=== PATIENT | female | born 1975 | race Two or more races ===

== ENCOUNTER 2023-11-01 11:18 | Emergency (ER) | payer MEDICAID ==
[~2023-11-01] VITALS: Ht 162.6 cm; Wt 130.7 kg
[2023-11-01] MEDS ORDERED: BACDST PO (14:33)
[2023-11-01 14:45] VITALS: BP 160/98; PULSE 75; RESP 18; O2SAT 98
== END 2023-11-01 14:46 | disposition home or self-care (01) ==
LOC: ER 11:18
DX: L03.116 Cellulitis of left lower limb (principal); R10.2 Pelvic and perineal pain; L03.115 Cellulitis of right lower limb; L97.821 Non-pressure chronic ulcer of other part of left lower leg limited to breakdown of skin
CPT/HCPCS: 36415; 73590; 84702; 93970

== ENCOUNTER 2023-11-29 19:09 | Emergency (ER) | payer MEDICAID ==
[~2023-11-29] VITALS: Ht 162.6 cm; Wt 130.2 kg
[~2023-11-29 19:09] MED LIST: BACDST PO
[2023-11-29 19:19] VITALS: BP 162/105; PULSE 109; RESP 20; O2SAT 97
[2023-11-29 20:42] LABS: Basophils # (auto) 0.1 10 ^3/uL (0-0.2); Basophils % (auto) 0.8 % (0.0-2.0); Eosinophils # (auto) 0.1 10 ^3/uL (0-0.8); Eosinophils % (auto) 1.6 % (0.0-7.0); Hemoglobin 15.8 g/dL (12.2-16.2); Lymphocytes # (auto) 1.9 10 ^3/uL (0.4-5.4); Lymphocytes % (auto) 25.7 % (10.0-50.0); Mean Corpuscular Hemoglobin 30.5 pg (28.0-32.0); Mean Corpuscular Hgb Conc. 32.9 g/dL (32.0-36.0); Mean Corpuscular Volume 92.7 fL (80.0-100.0); Monocytes # (auto) 0.5 10 ^3/uL (0-1.3); Monocytes % (auto) 6.6 % (0.0-12.0); Neutrophils # (auto) 4.8 10 ^3/uL (1.6-8.6); Neutrophils % (auto) 65.3 % (37.0-80.0); Nucleated Red Blood Cells % 0.1 %; Red Blood Cells 5.18 10^6/uL (4.0-5.20); Red Cell Distribution Width 13.6 % (11.8-14.3); White Blood Cell 7.3 10^3/uL (4.4-10.8)
[2023-11-29 21:04] LABS: Alanine Aminotransferase 46 U/L (7-40); Alkaline Phosphatase 162 U/L (46-116); Anion Gap 4 (5-15); Aspartate Aminotransferase 42 U/L (13-40); BUN/Creatinine Ratio 12.8 (10.0-20.0); Bilirubin, Total 0.4 mg/dL (0.2-1.0); Blood Urea Nitrogen 11 mg/dL (9-23); Calcium 9.5 mg/dL (8.7-10.4); Carbon Dioxide 27 mmol/L (20-30); Chloride 109 mmol/L (98-107); Glucose 133 mg/dL (74-106); Lipase 33 U/L (12-53); Potassium 4.1 mmol/L (3.5-5.1); Sodium 140 mmol/L (136-145)
[2023-11-29 21:05] LABS: Total Protein 7.4 g/dL (5.7-8.2)
== END 2023-11-30 04:37 | disposition left against medical advice (07) ==
LOC: ER 19:09
DX: I83.009 Varicose veins of unspecified lower extremity with ulcer of unspecified site (principal); L97.919 Non-pressure chronic ulcer of unspecified part of right lower leg with unspecified severity; E11.9 Type 2 diabetes mellitus without complications; Z48.00 Encounter for change or removal of nonsurgical wound dressing
CPT/HCPCS: 36415; 80053; 83605; 83690; 83880; 84484; 85025; 87040

== ENCOUNTER 2024-05-07 22:46 | Emergency (ER) | payer MEDICAID ==
[~2024-05-07] VITALS: Ht 162.6 cm; Wt 129.0 kg
[2024-05-08 01:07] LABS: Alanine Aminotransferase 28 U/L (7-40); Albumin 4.1 g/dL (3.2-4.8); Alkaline Phosphatase 179 U/L (46-116); Anion Gap 6 (5-15); Aspartate Aminotransferase 34 U/L (13-40); BUN/Creatinine Ratio 17.5 (10.0-20.0); Bilirubin, Total 0.3 mg/dL (0.2-1.0); Blood Urea Nitrogen 11 mg/dL (9-23); Calcium 9.5 mg/dL (8.7-10.4); Carbon Dioxide 26 mmol/L (20-30); Chloride 109 mmol/L (98-107); Glucose 115 mg/dL (74-106); Potassium 3.5 mmol/L (3.5-5.1); Sodium 141 mmol/L (136-145); Total Protein 7.5 g/dL (5.7-8.2)
[2024-05-08 02:00] VITALS: BP 155/91; PULSE 74; RESP 14; TEMP 98.1; O2SAT 97
[2024-05-08] MEDS: HYDROcodone-ACET 5/325MG TAB PO ONE (02:20)
== END 2024-05-08 02:10 | disposition home or self-care (01) ==
LOC: ER 22:46
DX: I87.2 Venous insufficiency (chronic) (peripheral) (principal); I83.018 Varicose veins of right lower extremity with ulcer other part of lower leg; I83.028 Varicose veins of left lower extremity with ulcer other part of lower leg; L97.818 Non-pressure chronic ulcer of other part of right lower leg with other specified severity; L97.829 Non-pressure chronic ulcer of other part of left lower leg with unspecified severity; F15.10 Other stimulant abuse, uncomplicated; E66.01 Morbid (severe) obesity due to excess calories; Z68.42 Body mass index [BMI] 45.0-49.9, adult
CPT/HCPCS: 36415; 71045; 80053

== ENCOUNTER 2024-11-05 20:49 | Emergency (ER) | payer MEDICAID ==
[~2024-11-05] VITALS: Ht 162.6 cm; Wt 118.7 kg
--- NOTE | 2024-11-05 21:11 | ED.PDOC ---
History of Present Illness HPI Comments This is a 49-year-old female who comes in with chief complaint of overdose on Lexapro. The patient states that she took a couple of Lexapro this morning because she was feeling somewhat anxious. This evening, the patient then stated that she was tired and was trying to go to bed. She then took another six t ablets of Lexapro which are 10 mg each. The patient took a couple of unknown muscle relaxers. The patient also drank some NyQuil. Upon arrival she seems somewhat sleepy and insists that she was not trying to kill herself. She states that she was just sleepy and anxious. She was able to ambulate to the chair without any difficulty. 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 History Family History Family History: Family hx of DM, Family hx of HTN Social History Smoker: Cigarettes Alcohol: Denies ETOH Use Drugs: Methamphetamine Lives In: Home Constitutional: reports: weakness; denies: chills, diaphoresis, fatigue, fever, malaise, sweats, others EENTM: denies: blurred vision, double vision, ear bleeding, ear discharge, ear drainage, ear pain, ear ringing, eye pain, eye redness, hearing loss, mouth pain, mouth swelling, nasal discharge, nose bleeding, nose congestion, nose pain, photophobia, tearing, throat pain, throat swelling, voice changes, others Respiratory: denies: cough, hemoptysis, orthopnea, SOB at rest, shortness of breath, SOB with excertion, stridor, wheezing, others Cardiovascular: denies: chest pain, dizzy spells, diaphoresis, Dyspnea on exertion, edema, irregular heart beat, left arm pain, lightheadedness, palpitations, PND, syncope, others Gastrointestinal: denies: abdomen distended, abdominal pain, blood streaked bowels, constipated, diarrhea, dysphagia, difficulty swallowing, hematemesis, melena, nausea, poor appetite, poor fluid intake, rectal bleeding, rectal pain, vomiting, others Genitourinary: denies: abnormal vagina bleeding, burning, dyspareunia, dysuria, flank pain, frequency, hematuria, incontinence, pain, , vagina disch arge, urgency, others Neurological: denies: dizziness, fainting, headache, left sided numbness, left sided weakness, numbness, paresthesia, pre-existing deficit, right sided numbness, right sided weakness, seizure, speech problems, tingling, tremors, weakness, others Musculoskeletal: denies: back pain, gout, joint pain, joint swelling, muscle pain, muscle stiffness, neck pain, others Integumetry: denies: bruises, change in color, change in hair/nails, dryness, laceration, lesions, lumps, rash, wounds, others Allergic/Immunocompromised: denies: Difficulty Healing, Frequent Infections, Hives, Itching, others Hematologic/Lymphatic: denies: anemia, blood clots, easy bleeding, easy bruising, swollen glands, others Endocrine: denies: excessive hunger, excessive sweating, excessive thirst, excessive urination, flushing, intolerance to cold, intolerance to heat, unexplained weight gain, unexplained weight loss, others Psychiatric: reports: anxiety; denies: bipolar disorder, depression, hopeless, panic disorder, schizophrenia, sleepless, suicidal, others Physical Exam General Appearance: Moderate Distress HEENT: Normal ENT Inspection, Pharynx Normal, TMs Normal Neck: Full Range of Motion, Non-Tender, Normal, Normal Inspection Respiratory: Chest Non-Tender, Lungs Clear, No Accessory Muscle Use, No Respiratory Distress, Normal Breath Sounds Cardiovascular: No Edema, No JVD, No Murmur, No Gallop, Normal Peripheral Pulses, Regular Rate/Rhythm Breast Exam: Deferred Gastrointestinal: No Organomegaly, Non Tender, No Pulsatile Mass, Normal Bowel Sounds, Soft Genitalia: Deferred Pelvic: Deferred Rectal: Deferred Extremities: No calf tenderness, Normal capillary refill, Normal inspection, Normal range of motion, Non-tender, No pedal edema Musculoskeletal : Apperance: Normal Neurologic: Alert, sonography technologist II-XII nml as Tested, No Motor Deficits, Normal Affect, Normal Mood, No Sensory Deficits Cerebellar Function: Normal Reflexes: Normal Skin: Dry, Normal Color, Warm Lymphatic: No Adenopathy Was a procedure done? Was a procedure done?: No EKG EKG : Pulse Rate (adult): 63 Emmalena: RAD Cardiac Rhythm: NSR Differential Dx Considerations may include: Overdose, anxiety, generalized weakness, suicidal ideation, homicidal ideation X-Ray, Labs, Meds, VS Vital Signs Date Time Temp Pulse Resp B/P (MAP) Pulse Ox O2 Delivery O2 Flow Rate FiO2 11/05/24 21:28 97.4 59 22 116/90 (99) 99 97.4 11/05/24 21:12 63 11/05/24 21:00 96.1 65 16 95/55 (68) 100 96.1 Lab Test 11/05/24 21:10 Range/Units White Blood Count 7.0 4.4-10.8 10^3/uL Red Blood Count 4.77 4.0-5.20 10^6/uL Hemoglobin 14.0 12.2-16.2 g/dL Hematocrit 42.6 36.0-46.0 % Mean Corpuscular Volume 89.3 80.0-100.0 fL Mean Corpuscular Hemoglobin 29.5 28.0-32.0 pg Mean Corpuscular Hemoglobin Concent 33.0 32.0-36.0 g/dL Red Cell Distribution Width 14.9 H 11.8-14.3 % Platelet Count 184 140-450 10^3/uL Mean Platelet Volume 8.5 6.9-10.8 fL Neutrophils (%) (Auto) 53.7 37.0-80.0 % Lymphocytes (%) (Auto) 34.8 10.0-50.0 % Monocytes (%) (Auto) 6.3 0.0-12.0 % Eosinophils (%) (Auto) 4.3 0.0-7.0 % Basophils (%) (Auto) 0.9 0.0-2.0 % Neutrophils # (Auto) 3.8 1.6-8.6 10 ^3/uL Lymphocytes # (Auto) 2.4 0.4-5.4 10 ^3/uL Monocytes # (Auto) 0.4 0-1.3 10 ^3/uL Eosinophils # (Auto) 0.3 0-0.8 10 ^3/uL Basophils # (Auto) 0.1 0-0.2 10 ^3/uL Nucleated Red Blood Cells 0.2 % Sodium Level 142 136-145 mmol/L Potassium Level 3.9 3.5-5.1 mmol/L Chloride Level 110 H 98-107 mmol/L Carbon Dioxide Level 25 20-31 mmol/L Anion Gap 7 5-15 Blood Urea Nitrogen 15 9-23 mg/dL Creatinine 0.67 0.550-1.02 mg/dL Glomerular Filtration Rate Calc 108 >90 mL/min BUN/Creatinine Ratio 22.4 H 10.0-20.0 Serum Glucose 161 H 74-106 mg/dL Calcium Level 9.6 8.7-10.4 mg/dL Total Bilirubin 0.3 0.2-1.0 mg/dL Aspartate Amino Transferase (AST) 24 13-40 U/L Alanine Aminotransferase (ALT) 18 7-40 U/L Alkaline Phosphatase 119 H 46-116 U/L Total Protein 7.1 5.7-8.2 g/dL Albumin 4.1 3.2-4.8 g/dL Salicylates Level < 3.0 -30 mg/dL Acetaminophen Level < 2.0 L 10.0-20.0 UG/ML Plasma/Serum Blood Alcohol Pending Current Medications Medications (Trade) Dose Ordered Sig/Tami Route Start Time Stop Time Status Last Admin Sodium Chloride 1,000 ml @ 1,000 mls/hr Q1H ONCE IVB 11/05/24 21:15 11/05/24 22:14 11/05/24 21:28 Poison control has been called An IV Hep-Lock is being established Poison control did say that we do need to get EKGs Q 4 hours We will also monitor the patient's acetaminophen level The patient's CBC and chemistry panel are within normal limits At this time the acetaminophen level as well as salicylate level and alcohol level are negative The patient will be signed out to Dr. South. Time of 1ST Reevaluation: 21:10 Reevaluation 1ST: Unchanged Patient Education/Counseling: Diagnosis, Treatment, Prognosis Family Education/Counseling: No Family Present Departure 1 Departure Time of Disposition: 21:45 Impression: Primary Impression: Overdose Qualified Codes: T50.904A - Poisoning by unspecified drugs, medicaments and biological substances, undetermined, initial encounter Additional Impression: Acute anxiety Disposition: 30 STILL A PATIENT Condition: Fair Critical Care Note Critical Care Time?: Yes (35 min-critical care time only) Stability Stability form required: No Heart Score Heart Score: Heart Score Response (Comments) Value History N/A 0 EKG N/A 0 Age N/A 0 Risk Factors N/A 0 Troponin N/A 0 Total 0 RUTHIE HUSSEIN MD Nov 05, 2024 21:11
[2024-11-05 21:20] LABS: Basophils # (auto) 0.1 10 ^3/uL (0-0.2); Basophils % (auto) 0.9 % (0.0-2.0); Eosinophils # (auto) 0.3 10 ^3/uL (0-0.8); Eosinophils % (auto) 4.3 % (0.0-7.0); Hematocrit 42.6 % (36.0-46.0); Lymphocytes # (auto) 2.4 10 ^3/uL (0.4-5.4); Lymphocytes % (auto) 34.8 % (10.0-50.0); Mean Corpuscular Hemoglobin 29.5 pg (28.0-32.0); Mean Corpuscular Volume 89.3 fL (80.0-100.0); Monocytes # (auto) 0.4 10 ^3/uL (0-1.3); Monocytes % (auto) 6.3 % (0.0-12.0); Neutrophils # (auto) 3.8 10 ^3/uL (1.6-8.6); Neutrophils % (auto) 53.7 % (37.0-80.0); Nucleated Red Blood Cells % 0.2 %; Platelet Count (auto) 184 10^3/uL (140-450); Red Blood Cells 4.77 10^6/uL (4.0-5.20); Red Cell Distribution Width 14.9 % (11.8-14.3)
[2024-11-05 21:28] VITALS: BP 116/90; TEMP 97.4
[2024-11-05] MEDS: SODIUM CHLORIDE 0.9% 1,000 ML IVB ONE (21:28)
[2024-11-05 21:35] LABS: Alanine Aminotransferase 18 U/L (7-40); Albumin 4.1 g/dL (3.2-4.8); Anion Gap 7 (5-15); Aspartate Aminotransferase 24 U/L (13-40); BUN/Creatinine Ratio 22.4 (10.0-20.0); Blood Urea Nitrogen 15 mg/dL (9-23); Calcium 9.6 mg/dL (8.7-10.4); Carbon Dioxide 25 mmol/L (20-31); Potassium 3.9 mmol/L (3.5-5.1); Sodium 142 mmol/L (136-145); Total Protein 7.1 g/dL (5.7-8.2)
[2024-11-05 21:36] LABS: Bilirubin, Total 0.3 mg/dL (0.2-1.0)
[2024-11-05 21:39] LABS: Acetaminophen < 2.0 UG/ML (10.0-20.0); Chloride 110 mmol/L (98-107); Glucose 161 mg/dL (74-106); Salicylate < 3.0 mg/dL (-30)
[2024-11-05 21:40] VITALS: PULSE 59; RESP 21; O2SAT 99
[2024-11-05 21:40] LABS: Alkaline Phosphatase 119 U/L (46-116)
[2024-11-05 22:00] LABS: Blood Alcohol < 3.0 mg/dL (<10)
--- NOTE | 2024-11-05 23:22 | ED.PDOC ---
Departure 1 Departure Time of Disposition: 23:22 (Patient denies self-harm intention. Patient's workup was benign patient is medically cleared discharge patient home with outpatient follow up) Impression: Primary Impression: Overdose Qualified Codes: T50.904A - Poisoning by unspecified drugs, medicaments and biological substances, undetermined, initial encounter Additional Impression: Acute anxiety Disposition: HOME / SELF CARE / HOMELESS Condition: Stable Additional Instructions: It is important to continue to take your regular medications follow up with the regular doctors. Your symptoms worsen or you have any other concerns please return to emergency room RENAE JC MD Nov 05, 2024 23:22
--- NOTE | 2024-11-06 10:19 | ECG ---
[facility] Test Date: 2024-11-05 Test Time: 21:07:38 Pat Name: MABEL DEL CASTILLO Department: ER Room: Gender: F Cross Tie Turner: ODETTE : 1975 Requested By: RUTHIE HUSSEIN Order Number: [id number] Reading MD: Measurements Intervals [place] Rate: 63 P: 46 IN: 185 QRS: 92 QRSD: 82 T: 53 QT: 471 QTc: 483 Interpretive Statements Sinus rhythm Borderline right axis deviation Baseline wander in lead(s) II,III,aVR,aVF Please click the below link to view image of tracing.
== END 2024-11-05 23:35 | disposition home or self-care (01) ==
LOC: ER 20:49
DX: T43.221A Poisoning by selective serotonin reuptake inhibitors, accidental (unintentional), initial encounter (principal); F41.9 Anxiety disorder, unspecified; F17.210 Nicotine dependence, cigarettes, uncomplicated; F15.90 Other stimulant use, unspecified, uncomplicated; Z79.899 Other long term (current) drug therapy; Y92.89 Other specified places as the place of occurrence of the external cause
CPT/HCPCS: 36415; 80053; 80320; 80329; 85025; 93005; 96360; 99284; J7030